=== PATIENT | female | born 1950 | race Caucasian/White ===

== ENCOUNTER 2019-02-25 10:58 | Emergency (ER) | payer MEDICARE ==
--- NOTE | 2019-02-25 11:01 | ED ---
Neurological HPI - HPI Summary HPI Summary: MARK LONGORIA called from the field by EMS at 1054, ETA 5 minutes. This pt is a 68 y/o female presenting to [facility] via EMS for aphasia and right sided weakness. EMS reports pt's last well known was last night 02/24/19 at 2000 per patient's . Per EMS, tried to wake patient up today at 0930 and pt was aphasic, with facial droop and unable to ambulate. EMS reports pt has drift in right lower and upper extremities. Finger stick at home was 155 and blood glucose in the ambulance was 208, per EMS. Patient denies any headache. Pt denies chest pain. - History of Current Complaint Stated Complaint: MARK LONGORIA Hx Obtained From: Patient, Family/Sausage [employer]er - , EMS Onset/Duration: Still Present Timing: Constant Current Severity: Moderate Neurological Deficit Location: Facial, RUE, RLE Pain Intensity: 0 Pain Scale Used: 0-10 Numeric Character: Weak, Impaired Speech Aggravating: Nothing Alleviating: Nothing Associated Signs and Symptoms: Positive: Weakness, Impaired Speech. Negative: Headache, Pain, Fever, Chest Pain - Allergy/Home Medications Allergies/Adverse Reactions: Allergies Allergy/AdvReac Type Severity Reaction Status Date / Time latex Allergy Rash Verified 02/25/19 11:35 Home Medications: Home Medications Ascorbic Acid TAB* [Vitamin C TAB*] 500 mg PO DAILY 02/25/19 [History Confirmed 02/25/19] Cholecalciferol CAP/TAB(NF) [Vitamin D3 CAP/TAB (NF)] 2,000 unit PO DAILY [History Confirmed 02/25/19] Lisinopril TAB* [Prinivil TAB*] 20 mg PO DAILY 02/25/19 [History Confirmed 02/25] glipiZIDE TAB* [Glucotrol TAB*] 10 mg PO BID 02/25/19 [History Confirmed ] PMH/Surg Hx/FS Hx/Imm Hx Endocrine/Hematology History: Reports: Hx Diabetes - type 2 Denies: Hx Thyroid Disease Cardiovascular History: Denies: Hx Hypertension Respiratory History: Denies: Hx Asthma, Hx Chronic Obstructive Pulmonary Disease (COPD) GI History: Denies: Hx Ulcer - Surgical History Surgical History: Yes Surgery Procedure, Year, and Place: hysterectomy 2002 Infectious Disease History: Denies: Hx Hepatitis, Hx Human Immunodeficiency Virus (HIV), History Other Infectious Disease - Family History Known Family History: Negative: Cardiac Disease, Hypertension, Diabetes - Social History Alcohol Use: None Substance Use Type: Reports: None Smoking Status (MU): Never Smoked Tobacco Review of Systems Negative: Fever Negative: Chest Pain Neurological: Other - POSITIVE: aphasia, unable to ambulate, facial droop Negative: Headache All Other Systems Reviewed And Are Negative: Yes Physical Exam - Summary Physical Exam Summary: Appearance: The patient is well-nourished in no acute distress and in no acute pain. Skin: The skin is warm and dry and skin color reflects adequate perfusion. HEENT: The head is normocephalic and atraumatic. The pupils are equal and reactive. The conjunctivae are clear and without drainage. Nares are patent and without drainage. Mouth reveals moist mucous membranes and the throat is without erythema and exudate. The external ears are intact. The ear canals are patent and without drainage. The tympanic membranes are intact. Neck: the neck is supple with full range of motion and non-tender. There are no carotid bruits. There is no neck vein distension. Respiratory: Chest is non-tender. Lungs are clear to auscultation and breath sounds are symmetrical and equal. Cardiovascular: Heart is regular rate and rhythm. There is no murmur or rub auscultated. There is no peripheral edema and pulses are symmetrical and equal. Abdomen: The abdomen is soft and non-tender. There are normal bowel sounds heard in all four quadrants and there is no organomegaly palpated. Musculoskeletal: There is no back tenderness noted. Extremities are non-tender with full range of motion. There is good capillary refill. There is no peripheral edema or calf tenderness elicited. Neurological: Patient is alert. Pt is aphasic. She has drift in her right upper and right lower extremities. NIH stroke scale is 10. Psychiatric: The patient has an appropriate affect and does not exhibit any anxiety or depression. Triage Information Reviewed: Yes Vital Signs On Initial Exam: Initial Vitals Temp Pulse Resp BP Pulse Ox 97.0 F 117 19 127/84 99 02/25/19 11:00 02/25/19 11:00 02/25/19 11:00 02/25/19 11:00 02/25/19 11:00 Vital Signs Reviewed: Yes - [place] Coma Scale Best Eye Response: 4 - Spontaneous Best Motor Response: 6 - Obeys Commands Best Verbal Response: 5 - Oriented Coma Scale Total: 15 Procedures - Sedation Patient Received Moderate/Deep Sedation with Procedure: No Diagnostics - Laboratory Result Diagrams: 02/25/19 11:34 Lab Statement: Any lab studies that have been ordered have been reviewed, and results considered in the medical decision making process. - CT Brain CT CT Interpretation Completed By: Radiologist Summary of CT Findings: IMPRESSION: Hypoattenuation of the left frontal subcortical white matter. Given clinical symptoms differential includes subacute infarct versus chronic small vessel ischemic change. Preliminary findings were discussed with Dr. Kothari in the Emergency Department at approximately 11:17 AM on February 25, 2019. Head/Neck CTA CT Interpretation Completed By: Radiologist Summary of CT Findings: IMPRESSION: 1. 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 2. Aspects score of 8 out of 10. 3. Atherosclerosis without internal carotid artery stenosis by nascet criteria. Preliminary findings were discussed with Dr. Dior at approximately 11:31 AM on February 25, 2019. Dr. Kothari has reviewed this report. - EKG 1124 Cardiac Rate: Tachycardia - at 118 bpm EKG Rhythm: Atrial Fibrillation Summary of EKG Findings: EKG at 1124 shows afib at a rate of [address] depression consistent with ischemia. NIH Scale - NIH Scale Level of Consciousness: Alert/Keenly Responsive Ask Patient the Month and His/Her Age: Neither Correct/Aphasic Ask Pt to Open/Close Eyes and Palliative Medicine Physician/Release Non-Paretic Hand: Both Correctly Best Gaze (Only Horizontal Eye Movement): Normal Visual Field Testing: No Visual Loss Facial Paresis-Pt to Smile & Close Eyes or Grimace Symmetry: Partial Paralysis Motor Function - Right Arm: Drifts LT 10 seconds Motor Function - Left Arm: No Drift-Holds 10 Seconds Motor Function - Right Leg: Drifts LT 10 seconds Motor Function - Left Leg: No Drift-Holds 10 Seconds Limb Ataxia-Must be out of Proportion to Weakness Present: Absent Sensory (Use Pinprick to Test Arms/Legs/Trunk/Face): Normal Best Language (Describe Picture, Name Items): Severe Aphasia Dysarthria (Read Several Words): Slurs Some Words Extinction and Inattention: Inattention Total Score: 10 Re-Evaluation - Re-Evaluation First Eval Re-Evaluation Time: 11:30 Comment: Patient denies any chest pain Course/Dx - Course Course Of Treatment: Mark Longoria called from the field by EMS at 1054, ETA 5 minutes. Patient arrives via EMS at [address] Kothari immediately at bedside. NIH stroke scale is 10. Pt to CT at 1102. Pt back from CT at 1118. Dr. Henderson, radiologist, reports brain CT results at 1117. Dr. Dior was present department prior to us getting reported CT results. As soon as the patient came back from CT scan he was able to evaluate her. CT revealed a large vessel occlusion and the helicopter was contacted. The helicopter is not flying today secondary to whether therefore arrangements were made to transfer the patient to [facility] by ground. Her EKG returned with diffuse ST depressions. We have no old EKG to compare to. The patient very clearly denies any chest pain and her comprehension seems competent to me. - Diagnoses Provider Diagnoses: CVA (cerebral vascular accident) During the Visit The Following Alert/Code Occurred: Mark Longoria - called from the field by EMS at 1054, ETA 5 minuts - Physician Notifications Discussed Care Of Patient With: Zurdo Henderson Time Discussed With Above Provider: 11:17 Instructed by Provider To: Other - Dr. Henderson, radiologist, reports brain CT results. - Critical Care Time Critical Care Time: 30-74 min Discharge ED - Sign-Out/Discharge Documenting (check all that apply): Patient Departure - Transfer to [facility] - Discharge Plan Condition: Stable Disposition: TRANS HIGHER LVL OF CARE FAC Referrals: Sam Rhodes MD [Primary Care Provider] - - Billing Disposition and Condition Condition: STABLE Disposition: Trans Higher Lvl of Care Fac - Attestation Statements Document Initiated by Ericaibe: Yes Documenting Scribe: Jada Campoverde Provider For Whom Sabrina is Documenting (Include Credential): Osmin Kothari MD Scribe Attestation: Jada Santana, scribed for Osmin Kothari MD on 02/25/19 at 1146. Scribe Documentation Reviewed: Yes Provider Attestation: The documentation as recorded by the Jada la accurately reflects the service I personally performed and the decisions made by me, Osmin Kothari MD Status of Scribe Document: Viewed
[2019-02-25] MEDS ORDERED: NS 0.9% 1000 ML** 1,000 ML IV ONE (11:06)
[2019-02-25 11:45] LABS: ABS Monocytes 0.3 10^3/ul (0-0.8); ABS Neutrophils 4.8 10^3/ul (1.5-7.7); Eosinophil % 0.5 %; Hematocrit 40 % (35-47); Hemoglobin 13.1 g/dL (12.0-16.0); Lymphocyte % 16.5 %; Mean Corpuscular HGB Conc 33 g/dL (31-36); Mean Corpuscular Hemoglobin 31 pg (27-31); Mean Corpuscular Volume 95 fL (80-97); Nucleated Red Blood Cells % 0.1; Platelet Count 163 10^3/uL (150-450); Red Blood Count 4.17 10^6 /uL (3.70-4.87); Red Cell Distribution Width 16 % (10-15); White Blood Count 6.2 10^3/uL (3.5-10.8)
--- OUTSIDE RECORDS SUMMARY | 2019-02-25 11:46 | XMS REPORT | Summary of Care ---
:1950 Author Organization [facility] Address [address] [facility] [address] [place] [address] Care Team Providers Name Role Phone Sam Rhodes Primary Care Provider Gordo Grande Unavailable Reason for Referral Diagnostic Testing (Routine) Status Reason Specialty Diagnoses / Referred By Referred To Procedures Contact Contact Pending Review Diagnoses Coronary artery disease involving [place] coronary artery of [place] heart without angina pectoris Christiane, Procedures ECHOCARDIOGRAM TTE MD Gordo [address] [place] [address] Reason for Visit Reason Comments Follow Up Pt. in a 1 year Follow up on CAD. Pt. Denies Cardiac Symptoms. Encounter Details Date Type Department Care Team Description 12/31/2018 Office Visit Wagner Dayanara Grande, Need for influenza vaccination (Primary Dx); Cardiology MD Gordo Coronary artery disease involving [place] coronary artery of [place] heart without angina pectoris; [facility] [address] Essential hypertension; [place] [address] Dyslipidemia [phone] Allergies Active Allergy Reactions Severity Noted Date Comments Latex 06/14/2007 documented as of this encounter (statuses as of 12/31/2018) Medications Medication Sig Dispensed Refills Start End Date Status Date ibuprofen (MOTRIN) Take 1 Tab by 90 5 Active 600 MG Oral Tab mouth EVERY 9 EIGHT HOURS NEEDED for Pain. Aspirin 81 MG Oral Take 162 mg by 0 Active Tab mouth DAILY. ondansetron Take 4 mg by 18 Tab 0 Active (ZOFRAN) 4 MG Oral mouth EVERY 7 TabIndications: EIGHT HOURS Nausea NEEDED for nausea. Cholecalciferol (KP Take 1 Cap by 30 Cap 0 Active VITAMIN D) 1000 mouth DAILY. 7 units Oral Cap Ascorbic Acid Take by mouth. 0 Active (VITAMIN C PO) metFORMIN HCL 1000 TAKE 1 TABLET BY 180 Tab 3 Active MG Oral Tab MOUTH TWICE 9 DAILY atorvastatin TAKE 1 TABLET BY 90 Tab 3 Active (LIPITOR) 40 MG MOUTH ONCE DAILY 9 Oral Tab metoprolol Take 1 Tab by 180 Tab 5 Active (LOPRESSOR) 25 MG mouth TWICE 9 Oral Tab DAILY. Glucose Blood (ONE 1 Each by Does 100 Each 5 Active TOUCH TEST STRIPS) not apply route 9 In Vitro DAILY. DX E11.9. StripIndications: Test daily. Diabetes mellitus Insurance without preferred complication (HCC) lisinopril Take 1 Tab by 90 Tab 5 09/11/19 Active (PRINIVIL, ZESTRIL) mouth DAILY. 9 20 20 MG Oral Tab Blood Glucose 1 Device by Does 1 Device 0 Active Monitor Software not apply route 9 Does not apply DIRECTED. DeviceIndications: uncontrolled Diabetes mellitus non-insulin without dependent complication (HCC) diabetes. Brand: Insurance preferred Test daily pioglitazone TAKE 1 TABLET BY 90 Tab 3 Active (ACTOS) 30 MG Oral MOUTH ONCE DAILY 9 Tab glipiZIDE TAKE 1 TABLET BY 180 Tab 3 Active (GLUCOTROL) 10 MG MOUTH TWICE 9 Oral Tab DAILY ezetimibe (ZETIA) Take 1 Tab by 90 Tab 3 Active 10 MG Oral mouth DAILY. 9 TabIndications: Coronary artery disease involving [place] coronary artery of [place] heart without angina pectoris ezetimibe (ZETIA) Take 1 Tab by 90 Tab 3 01/01/20 Discontinued 10 MG Oral Tab mouth DAILY. 6 19 (Reorder) documented as of this encounter (statuses as of 12/31/2018) Active Problems Problem Noted Date BMI 45.0-49.9, adult 04/09/2018 Uncontrolled type 2 diabetes mellitus without complication, without 05/12/2017 long-term current use of insulin Coronary artery disease involving [place] coronary artery of [place] heart 02/25 without angina pectoris Overview: Nonobstructive by cath 01/2014. Atypical angina 02/25/2014 Essential hypertension, benign 10/26/2007 Obesity 06/14/2007 Overview: This patient's BMI has been calculated and is above average, and BMI management plan is completed. 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 documented as of this encounter (statuses as of 12/31/2018) Resolved Problems Problem Noted Date Resolved Date AODM 06/14/2007 05/12/2017 documented as of this encounter (statuses as of 12/31/2018) Immunizations Name Administration Dates Next Due Influenza (IM) Preservative Free 12/06/2011 Influenza Vaccine 65 Yrs + 12/31/2018 Influenza Vaccine High Dose 03/01/2018, 01/03/2017, 01/14/2014 PNEUMOCOCCAL POLYSACCHARIDE VACCINE 02/02/2017 Pneumococcal Conjugate(13 Valent) 10/14/2014 documented as of this encounter Social History Tobacco Use Types Packs/Day Years Used Date Never Smoker Smokeless Tobacco: Never Used Alcohol Use Drinks/Week oz/Week Comments No 0 Standard drinks or equivalent 0.0 Social Isolation Answer Date Recorded In a typical week, how many times do you talk on the Three times a week 04/04 phone with family, friends, or neighbors? How often do you get together with friends or Three times a week 04/04/2018 relatives? How often do you attend episcopalian or mosque Not asked services? Do you belong to any clubs or organizations such as Not asked episcopalian groups, unions, fraternal or athletic groups, or school groups? How often do you attend meetings of the clubs or Not asked organizations you belong to? Are you now , , , , 04/04/2018 never or living with a partner? Physical Activity Answer Date Recorded On average, how many days per week do you engage in moderate to 0 days 2018 strenuous exercise (like walking fast, running, jogging, dancing, swimming, biking, or other activities that cause a light or heavy sweat)? On average, how many minutes do you engage in exercise at this 0 min 02/06/ 2019 level? Stress Answer Date Recorded Do you feel stress - tense, restless, nervous, or anxious, Not at all 2018 or unable to sleep at night because your mind is troubled all the time - these days? Financial Resource Strain Answer Date Recorded How hard is it for you to pay for the very basics like Not hard at all 2018 food, housing, medical care, and heating? Intimate Partner Violence Answer Date Recorded Within the last year, have you been afraid of your partner or No 04/04/2018 ex-partner? Within the last year, have you been humiliated or emotionally No 04/04/2018 abused in other ways by your partner or ex-partner? Within the last year, have you been kicked, hit, slapped, or No 04/04/2018 otherwise physically hurt by your partner or ex-partner? Within the last year, have you been raped or forced to have any No 04/04/2018 kind of sexual activity by your partner or ex-partner? Food Insecurity Answer Date Recorded Within the past 12 months, you worried that your food would Never true 2018 run out before you got money to buy more. Within the past 12 months, the food you bought just didn't Never true 2018 last and you didn't have money to get more. Transportation Needs Answer Date Recorded In the past 12 months, has lack of transportation kept you from No 04/04/2018 medical appointments or from getting medications? In the past 12 months, has lack of transportation kept you from No 04/04/2018 meetings, work, or getting things needed for daily living? Sex Assigned at Date Recorded Not on file Job Start Date Occupation Industry Not on file Not on file Not on file Travel History Travel Start Travel End No recent travel history available. documented as of this encounter Last Filed Vital Signs Vital Sign Reading Time Taken Comments Blood Pressure 124/62 12/31/2018 10:00 AM EST Pulse 72 12/31/2018 10:00 AM EST Temperature - - Respiratory Rate - - Oxygen Saturation - - Inhaled Oxygen Concentration - - Weight 103.4 kg (228 lb) 12/31/2018 10:00 AM EST Height 157.5 cm (5' 2") 12/31/2018 10:00 AM EST Body Mass Index 41.7 12/31/2018 10:00 AM EST documented in this encounter Patient Instructions Patient InstructionsGordo Grande MD - 12/31/2018 10:00 AM EST RESTART taking ezetimibe 10mg once daily. No other medication changes today. Continue to work on weight loss, regular exercise, and a healthy diet. Schedule an echocardiogram sometime in the next few months. Follow up with me in 1-2 years or sooner if needed. documented in this encounter Progress Notes Gordo Grande MD - 12/31/2018 10:00 AM EST [facility] Note Patient: Doreen Otto Date of : 1950 Date of Service: 12/31/2018 REFERRING PRACTITIONER: Gordo Grande PRIMARY CARE PROVIDER: Sam Rhodes Chief Complaint: Chief Complaint Patient presents with Follow Up Pt. in a 1 year Follow up on CAD. Pt. Denies Cardiac Symptoms. History of Present Illness: [facility] She [facility] a 68-y.o. female with DM, obesity, HTN, hyperlipidemia, and nonobstructive CAD by cath 2013. Ms. Otto returns to cardiology clinic today for routine f/u. Since her last visit with me in June 2017, she reports feeling generally well. She denies any CP/pressure or limiting dyspnea although sometimes the cold air makes her SOB. She has intermittent vertigo but denies lightheadedness, syncope, or palpitations. No orthopnea, paroxysmal dyspnea, or significant lower extremity edema. Patient Active Problem List Diagnosis Obesity Pure hypercholesterolemia DJD-LS SPINE Essential hypertension, benign Coronary artery disease involving [place] coronary artery of [place] heart without angina pectoris Atypical angina (HCC) Uncontrolled type 2 diabetes mellitus without complication, without long- term current use of insulin (HCC) BMI 45.0-49.9, adult (HCC) Past Medical History: Diagnosis Date AODM 06/14/2007 DJD-LS SPINE 06/14/2007 Hyperlipidemia 06/14/2007 Nulliparity Obesity 06/14/2007 Postmenopausal Past Surgical History: Procedure Laterality Date CATHETERIZATION HEART LEFT N/A 02/25/2014 Procedure: CATHETERIZATION HEART LEFT; Surgeon: Miguel Ángel Ly MD; Location: [facility]; Laterality:N/A; LEFT HEART VIA RIGHT RADIAL, HEMOBAND ON TOTAL ABD HYSTERECTOMY 2000 Allergies Allergen Reactions Latex Current Outpatient Medications Medication Ascorbic Acid (VITAMIN C PO) Aspirin 81 MG Oral Tab atorvastatin (LIPITOR) 40 MG Oral Tab Blood Glucose Monitor Software Does not apply Device Cholecalciferol (KP VITAMIN D) 1000 units Oral Cap ezetimibe (ZETIA) 10 MG Oral Tab glipiZIDE (GLUCOTROL) 10 MG Oral Tab Glucose Blood (ONE TOUCH TEST STRIPS) In Vitro Strip ibuprofen (MOTRIN) 600 MG Oral Tab lisinopril (PRINIVIL, ZESTRIL) 20 MG Oral Tab metFORMIN HCL 1000 MG Oral Tab metoprolol (LOPRESSOR) 25 MG Oral Tab ondansetron (ZOFRAN) 4 MG Oral Tab pioglitazone (ACTOS) 30 MG Oral Tab Family History Problem Relation Age of Onset Diabetes Father Heart Disease Father Hypertension Father Heart Disease Mother Possibly A fib Other Diagnosed Disorder Brother 3rd and 4th degree soni on 85% of body Diabetes Brother Diabetes Brother Social History Socioeconomic History Marital status: Spouse name: Not on file Number of children: 0 Years of education: Not on file Highest education level: Not on file Occupational History Not on file Social Needs Financial resource strain: Not hard at all Food insecurity: Worry: Never true Inability: Never true Transportation needs: Medical: No Non-medical: No Tobacco Use Smoking status: Never Smoker Smokeless tobacco: Never Used Substance and Sexual Activity Alcohol use: No Alcohol/week: 0.0 standard drinks Drug use: No Sexual activity: Yes Partners: Male control/protection: Surgical Lifestyle Physical activity: Days per week: 0 days Minutes per session: 0 min Stress: Not at all Relationships Social connections: Talks on phone: Three times a week Gets together: Three times a week Attends mosque service: Not on file Active member of club or organization: Not on file Attends meetings of clubs or organizations: Not on file Relationship status: Intimate partner violence: Fear of current or ex partner: No Emotionally abused: No Physically abused: No Forced sexual activity: No Other Topics Concern Back Care Not Asked Bike Helmet Not Asked Blood Transfusions Not Asked Caffeine Concern Not Asked Exercise Yes Comment: walks daily Hobby Hazards Not Asked International Travel Not Asked Service Not Asked Occupational Exposure Not Asked Seat Belt Not Asked Self-Exams Not Asked Sleep Concern Not Asked Special Diet Yes Comment: low carbo diet Stress Concern Not Asked Weight Concern Yes Comment: has lost 15 lbs last year 2010- Social History Narrative Lives in [facility] area 2 adopted children Review of Systems - Negative except as noted in HPI. Physical Exam: Vitals: 12/31/18 1000 BP: 124/62 Pulse: 72 Weight: 228 lb (103.4 kg) Height: 5' 2" (1.575 m) Body mass index is 41.7 kg/m. General: Obese, alert 68-y.o. female in NAD HEENT: anicteric, MMM, no E/E OP, conj pink Neck: JVP not visible above clavicles while upright; no carotid bruits or LAD CV: RRR, normal s1/s2, soft EMERSON at USB. Pulm: CTA bilaterally without wheezes, rhonchi, or rales. No increased work of breathing. Abd: soft, obese, NT, ND, +BS. No appreciable pulsatile masses or bruits. Ext: Trace bilateral lower extremity edema, no cyanosis, no cords, redness, or warmth, 2+ distal pulses. Neuro: no gross focal deficits Skin: no visible lesions Labs: Lab Results Component Value Date NA 139 09/11/2018 K 4.2 09/11/2018 CL 103 09/11/2018 CO2 25 09/11/2018 GLUCOSE 204 (H) 09/11/2018 BUN 16 09/11/2018 CREATININE 0.7 09/11/2018 CALCIUM 9.2 09/11/2018 TP 6.9 09/11/2018 ALBUMIN 3.9 09/11/2018 AST 20 09/11/2018 ALT 23 09/11/2018 ALK 73 09/11/2018 TBILI 0.9 09/11/2018 No results found for: BNP Lab Results Component Value Date CHOL 156 09/11/2018 TRIG 130 09/11/2018 HDL 32 (L) 09/11/2018 LDL 98 09/11/2018 LDLHDLRATIO 3.1 09/11/2018 CHOLHDLRATIO 4.9 09/11/2018 Cardiac Studies: EKG Today (I personally reviewed): NSR in 70s. Normal EKG. No sig change from prior. Left Heart Cath 02/25/14: LEFT HEART CATHETERIZATION: Left ventricular end-diastolic pressure is normal at 15 mmHg. There is no significant gradient across the aortic valve. CONCLUSION: Nonobstructive coronary artery disease with tapered down left anterior descending artery. Exercise Stress Echo 01/27/14: FINAL IMPRESSION: Exercise tolerance of patient is poor. Resting hypertension with appropriate heart rate and blood pressure response to exercise. Concentric LVH with mild left atrial enlargement. Normal resting LV systolic function without resting regional wall motion abnormalities. Mild stress induced LAD distribution wall motion abnormalities. This test is equivocal for ischemia by symptoms, positive for ischemia by EKG, and positive for ischemia by echocardiographic imaging, as described. Recommendation Patient was informed that her test results were not normal and an appointment for cardiology consultation was arranged for 01/29/14. Patient was instructed to call 911 if she developed worsening or resting symptoms in the interim, and she expressed understanding and agreement with the plan. Assessment & Plan: Doreen Otto is a 68-y.o. female with DM, obesity, HTN, hyperlipidemia, and nonobstructive CAD by cath 2013. ICD-9-CM ICD-10-CM 1. Need for influenza vaccination V04.81 Z23 2. Coronary artery disease involving [place] coronary artery of [place] heart without angina pectoris 414.01 I25.10 AMBULATORY 12 LEAD EKG (GLOBAL) ECHOCARDIOGRAM TTE ezetimibe (ZETIA) 10 MG Oral Tab 3. Essential hypertension 401.9 I10 4. Dyslipidemia 272.4 E78.5 1. Nonobstructive Coronary Artery Disease: Currently asymptomatic from an ischemic standpoint. I recommend the following medical regimen: Antiplatelets: Continue aspirin 81 mg daily for life. Statin: Wasn't able to tolerate highest dose atorvastatin due to myalgias and couldn't afford Crestor. Will cont 40mg atorvastatin. Was doing fine with Zetia as well, but has been off that for awhile for some reason. Since her LDL has increased to 98 off the Zetia, I recommended restarting itand sent a new prescription for her. Beta-adelina: Cont metoprolol. ELIAS-inhibitor: BP well controlled. Cont lisinopril.. I again encouraged increased exercise and working on weight loss with portion control. Will plan to recheck a resting echo to ensure no change in LV function since it's been many years since her last. Thank you for allowing me to participate in the care of Doreen Otto. We will plan on f/u in our office in 1-2 years or sooner prn. If you have any questions or concerns please feel free to call our office at . Gordo Grande MD, 12/31/2018, 10:27 This note was created using my previous note as a template; changes were made where appropriate, andall information in the current note is up to date to the best of my knowledge.Electronically signed by Gordo Grande MD at 2018 11:13 AM ESTdocumented in this encounter Plan of Treatment Date Type Specialty Care Team Description 12/31/2018 Lab Internal Medicine Diabetes mellitus without complication (HCC) 03/05/2019 Orders Only Cardiology 04/03/2019 Ancillary Procedure Radiology 01/01/2020 Office Visit Cardiology Gordo Grande MD [address] [place] [address] [phone] Name Type Priority Associated Diagnoses Order Schedule AMBULATORY 12 LEAD EKG EKG Routine Coronary artery Ordered: 12/31/2018 (GLOBAL) disease involving [place] coronary artery of [place] heart without angina pectoris ECHOCARDIOGRAM TTE CV Lab Routine Coronary artery Expected: 12/31/2018 disease involving (Approximate), [place] coronary artery Expires: 02/04/2020 of [place] heart without angina pectoris Health Maintenance Due Date Last Done Comments ZOSTER IMMUNIZATION SERIES 1998 (1 of 2) Diabetic Eye Exam 12/14/2017 12/14/2016, 05/12/2015 FOOT EXAM 01/05/2018 01/05/2017, 01/05/2017, 01/05/2017, Additional history exists INFLUENZA VACCINE (#1) 2018 03/01/2018, 01/03/2017, 01/14/2014, Additional history exists HEMOGLOBIN A1C 12/12/2018 09/11/2018, 03/01/2018, 09/12/2017, Additional history exists DEPRESSION SCREENING 04/04/2019 04/04/2018 FALL RISK ASSESSMENT 04/04/2019 04/04/2018, 04/04/2018 MEDICARE ANNUAL WELLNESS 04/04/2019 04/04/2018 VISIT MAMMOGRAM (SCREENING) 04/12/2019 04/12/2018, 02/02/2017, 11/25/2015, Additional history exists LIPID DISORDER SCREENING 09/12/2019 09/11/2018, 08/14/2018, 03/01/2018, Additional history exists OSTEOPOROSIS SCREENING 04/04/2028 04/04/2018 PNEUMOCOCCAL 65+YRS Completed 02/02/2017, 10/14/2014 HPV IMMUNIZATION SERIES Aged Out No longer eligible based on patient's age to complete this topic MENINGOCOCCAL VACCINE IMM Aged Out No longer eligible based on patient's age to complete this topic documented as of this encounter Goals Goal Patient Goal Associated Recent Patient-Stated? Author Type Problems Progress Blood Pressure Blood Pressure Essential 124/62 No [place], < 140/90 hypertension, (12/31/2018 Sam Jean Pierre, benign 10:00 AM EST) Note: Hypertension Care Plan Based on the patient's clinical history and according to JNC 8 guidelines target blood pressure goal is less than 140/90. Based on the patient's last blood pressure of BP: 120/80 mmHg the patient is at at goal. As your provider, it is important that I advise you regarding: your current medications and help you with any challenges you may face taking your medications as directed (ex. instructions, cost, side effects, and interactions). Important lifestyle changes: exercise, weight reduction, diet and dietary sodium reduction your clinical goals and how you can achieve success: weight reduction, exercise plan and diet improvements medication management: N/A diet only patient education/self-management tools provided: Current self-management tools adequate To successfully manage my Hypertension I will: monitor my blood pressure daily, understanding that my goal is less than 140/ 90 per my healthcare provider's recommendation. I will schedule an appointment with my provider if consistent abnormal readings greater than 160/100. take medications every day as prescribed by my healthcare provider and if unable to take them I will discuss with my provider. monitor for symptoms of chest pain, chest tightness/pressure, irregular heartbeat, persistent dizziness, radiating arm pain, and neck or jaw pain. If any of these symptoms are noticed I will seek medical attention immediately by calling 911 exercise/walk 45 minutes 7 day(s) per week. If I experience chest pain, chest tightness, or shortness of breath, I will seek medical attention immediately. follow a diet rich in fruits, vegetables, and low-fat dairy products with reduced content of saturated & total fat. I will reduce my sodium intake daily. An example is the DASH diet. To obtain more information please refer to the DASH Eating Plan listed in Educational Resources. record my blood pressure results. Cezar is safe and secure way for you to do this in your medical record online. try to obtain an ideal body weight. My recent weight was Weight: 207 lb ( 93.895 kg). My weight loss goal for my next office visit is 190 pounds . limit alcohol consumption. For men two drinks per day and women one drink per day. if currently smoking, will discuss how to quit smoking with my healthcare provider and work towards quitting. Educational Resources: National Heart, Lung, & Blood [place] http://nhlbi.nih.gov/hbp/index.html The DASH Diet Eating Plan http://www.nhlbi.nih.gov/health/health-topics/ topics/dash/ Academy of Nutrition & DIetetics http://eatright.org National Smoking Cessation Site http://smokefree.gov Blood Pressure < Blood Pressure 124/62 (12/31/2018 No Heather Dobson FNP 140/90 10:00 AM EST) Note: This is an individualized treatment (blood pressure) goal for Doreen Otto: Displayed above (on the left) is your goal for blood pressure control. Your most recent blood pressure is also shown above, on the right. You should try to achieve blood pressures that are lower than your goal listed above (on the left). Glycohemoglobin A1c < 7.0 Diabetes 10.4 (09/11/2018 9:00 No Heather Dobson FNP AM EDT) Note: This is an individualized treatment (diabetes control, HgbA1C) goal for Doreen Otto: Displayed above is your progress towards your HgbA1C goal. Your goal is shown above (on the left); your most recent HgbA1C is shown on the right. Note that lower numbers are better. Weight loss vs. 18 mo Lifestyle 8.1 (12/31/2018 10:00 AM No Heather Dobson FNP max (lbs) >= 10 EST) Note: This is an individualized lifestyle goal for Doreen Otto: Your body mass index (BMI) is more than 30. You should lose weight. A reasonable starting goal is to lose 10 pounds. Displayed above is how many pounds you have lost thus far towards your 10 pound weight loss goal. Keep immunizations current Lifestyle No Heather Dobson FNP Note: This is an individualized lifestyle goal for Doreen Otto: Please be sure to keep up-to-date on recommended immunizations. For example, this would include a yearly influenza vaccine. Immunization status can be seen by looking at the Health Maintenance sections of your e[facility], Plan of Care, and any After Visit Summaries. Take all prescribed medications as Self-management No Heather Dobson FNP directed Note: This is an individualized self-management goal for Doreen Otto: Please take all prescribed medications as directed. 1. Do not skip doses. If you cannot afford your medications, talk with your doctor. 2. Use a pill reminder system such as a pill box if needed. Your pharmacist can help you with this. 3. Contact your Pharmacy 5 days before your medication runs out. If you cannot take your medications for any reasons, talk with your doctor. 4. Please bring all of your medication bottles and inhalers (or a list of all your medications/inhalers) with you to every visit. Potential barriers to meeting all of your care plan goals will continue to be addressed on an ongoing basis. documented as of this encounter Results Not on filedocumented in this encounter Visit Diagnoses Diagnosis Need for influenza vaccination - Primary Need for prophylactic vaccination and inoculation against influenza Coronary artery disease involving [place] coronary artery of [place] heart without angina pectoris Essential hypertension Unspecified essential hypertension Dyslipidemia Other and unspecified hyperlipidemia documented in this encounter Insurance Payer Benefit Plan / Subscriber ID Effective Dates Phone Address Type Group UHC MEDICARE [employer] xxxxxxxxx 2016-Present [facility] [employer] MEDICARE ADVANTAGE (Home) [place], [place] [phone] [id number] (Work) documented as of this encounter
--- OUTSIDE RECORDS SUMMARY | 2019-02-25 11:46 | XMS REPORT | Summary of Care ---
:1950 Author Organization [facility] Address [address] [facility] [place] [address] Care Team Providers Name Role Phone EurekaSam Primary Care Provider Gordo Grande Unavailable Reason for Visit Reason Comments Follow Up diabetic f/u Encounter Details Date Type Department Care Team Description 01/10/2019 Office Visit [facility] Heather Dobson, Diabetes mellitus without complication (HCC) (Primary Dx); Practice [facility] Essential hypertension, benign; [address] Pure hypercholesterolemia; [place] [address] [place] [address] Encounter for screening mammogram for breast cancer [phone] Allergies Active Allergy Reactions Severity Noted Date Comments Latex 06/14/2007 documented as of this encounter (statuses as of 01/10/2019) Medications Medication Sig Dispensed Refills Start Date End Date Status ibuprofen (MOTRIN) Take 1 Tab by 90 5 06/11/2008 Active 600 MG Oral Tab mouth EVERY EIGHT HOURS NEEDED for Pain. Aspirin 81 MG Oral Take 162 mg by 0 Active Tab mouth DAILY. ondansetron (ZOFRAN) Take 4 mg by mouth 18 Tab 0 03/30/2016 Active 4 MG Oral EVERY EIGHT HOURS TabIndications: NEEDED for Nausea nausea. Cholecalciferol (KP Take 1 Cap by 30 Cap 0 01/03/2017 Active VITAMIN D) 1000 units mouth DAILY. Oral Cap Ascorbic Acid Take by mouth. 0 Active (VITAMIN C PO) metFORMIN HCL 1000 MG TAKE 1 TABLET BY 180 Tab 3 06/20/2018 Active Oral Tab MOUTH TWICE DAILY atorvastatin TAKE 1 TABLET BY 90 Tab 3 08/14/2018 Active (LIPITOR) 40 MG Oral MOUTH ONCE DAILY Tab metoprolol Take 1 Tab by 180 Tab 5 08/22/2018 Active (LOPRESSOR) 25 MG mouth TWICE DAILY. Oral Tab Glucose Blood (ONE 1 Each by Does not 100 Each 5 09/11/2018 Active TOUCH TEST STRIPS) In apply route DAILY. Vitro DX E11.9. Test StripIndications: daily. Insurance Diabetes mellitus preferred without complication (HCC) lisinopril (PRINIVIL, Take 1 Tab by 90 Tab 5 09/11/2018 09/11/2019 Active ZESTRIL) 20 MG Oral mouth DAILY. Tab Blood Glucose Monitor 1 Device by Does 1 Device 0 09/11/2018 Active Software Does not not apply route apply DIRECTED. DeviceIndications: uncontrolled Diabetes mellitus non-insulin without complication dependent (HCC) diabetes. Brand: Insurance preferred Test daily pioglitazone (ACTOS) TAKE 1 TABLET BY 90 Tab 3 12/28/2018 Active 30 MG Oral Tab MOUTH ONCE DAILY glipiZIDE (GLUCOTROL) TAKE 1 TABLET BY 180 Tab 3 12/28/2018 Active 10 MG Oral Tab MOUTH TWICE DAILY ezetimibe (ZETIA) 10 Take 1 Tab by 90 Tab 3 12/31/2018 Active MG Oral mouth DAILY. TabIndications: Coronary artery disease involving [place] coronary artery of [place] heart without angina pectoris documented as of this encounter (statuses as of 01/10/2019) Active Problems Problem Noted Date BMI 45.0-49.9, adult 04/09/2018 Uncontrolled type 2 diabetes mellitus without complication, without 05/12/2017 long-term current use of insulin Coronary artery disease involving [place] coronary artery of [place] heart 02/25 without angina pectoris Overview: Nonobstructive [...] as of this encounter (statuses as of 01/10/2019) Resolved Problems Problem Noted Date Resolved Date AODM 06/14/2007 05/12/2017 documented as of this encounter (statuses as of 01/10/2019) Immunizations Name Administration Dates Next Due Influenza [...] 04/04/2018 relatives? How often do you attend caodaism or mormonism Not asked services? Do you belong to any clubs or organizations such as Not asked caodaism groups, unions, fraternal or athletic groups, or [...] engage in exercise at this 0 min 2018 level? Stress Answer Date Recorded Do you [...] Sign Reading Time Taken Comments Blood Pressure 122/60 01/10/2019 10:41 AM EST Pulse 76 01/10/2019 10:41 AM EST Temperature - - Respiratory Rate - - Oxygen Saturation 97% 01/10/2019 10:41 AM EST Inhaled Oxygen Concentration - - Weight 103.4 kg (228 lb) 01/10/2019 10:41 AM EST Height 157.5 cm (5' 2") 01/10/2019 10:41 AM EST Body Mass Index 41.7 01/10/2019 10:41 AM EST documented in this encounter Patient Instructions Patient InstructionsHeather Dobson FNP - 01/10/2019 10:40 AM ESTYou are due for eye exam Schedule fasting blood work at time of mammogram after 04/12/19 Follow up after lab work. Diabetes improved documented in this encounter Progress Notes Heather Dobson FNP - 01/10/2019 10:40 AM EST PATIENT: Doreen Otto : 1950 DATE OF SERVICE: 01/10/2019 Chief Complaint Patient presents with Follow Up diabetic f/u SUBJECTIVE: Doreen Otto is a 68-y.o. female who is here for follow up of diabetes, dyslipidemis and hypertension. She has had a lot of stress in family lately so fingersticks are all over the place from 100-200's.She is taking the diabetes meds but diet not always so good. She feels she can do better. Patient denies foot pain or swelling, foot lesions, numbness, burning, injuries or infections. She is due for eye exam. The patient is taking hypertensive medications compliantly without side effects. Denies chest pain,dyspnea, edema, or TIA's. No dizziness . She has been taking her statin cholesterol medication regularly without side effects such as myalgias or upper abdominal pain, nausea or jaundice. Patient Active Problem List Diagnosis Date Noted BMI 45.0-49.9, adult ([facility]) 04/09/2018 Uncontrolled type 2 diabetes mellitus without complication, without long- term current use of insulin ([facility]) 05/12/2017 Coronary artery disease involving [place] coronary artery of [place] heart without angina pectoris 02/25/2014 Nonobstructive by cath 01/2014. Atypical angina ([facility]) 02/25/2014 Essential hypertension, benign 10/26/2007 Obesity 06/14/2007 This patient's BMI has been calculated and is above average, and BMI management plan is completed. 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 Aspirin 81 MG Oral Tab Take 162 mg by mouth DAILY. atorvastatin (LIPITOR) 40 MG Oral Tab TAKE 1 TABLET BY MOUTH ONCE DAILY Blood Glucose Monitor Software Does not apply Device 1 Device by Does not apply route DIRECTED. uncontrolled non-insulin dependent diabetes. Brand : Insurance preferred Test daily Cholecalciferol ( VITAMIN D) 1000 units Oral Cap Take 1 Cap by mouth DAILY. ezetimibe (ZETIA) 10 MG Oral Tab Take 1 Tab by mouth DAILY. glipiZIDE (GLUCOTROL) 10 MG Oral Tab TAKE 1 TABLET BY MOUTH TWICE DAILY Glucose Blood (ONE TOUCH TEST STRIPS) In Vitro Strip 1 Each by Does not apply route DAILY. DXE11.9. Test daily. Insurance preferred ibuprofen (MOTRIN) 600 MG Oral Tab Take 1 Tab by mouth EVERY EIGHT HOURS NEEDED for Pain. lisinopril (PRINIVIL, ZESTRIL) 20 MG Oral Tab Take 1 Tab by mouth DAILY. metFORMIN HCL 1000 MG Oral Tab TAKE 1 TABLET BY MOUTH TWICE DAILY metoprolol (LOPRESSOR) 25 MG Oral Tab Take 1 Tab by mouth TWICE DAILY. ondansetron (ZOFRAN) 4 MG Oral Tab Take 4 mg by mouth EVERY EIGHT HOURS NEEDED for nausea. pioglitazone (ACTOS) 30 MG Oral Tab TAKE 1 TABLET BY MOUTH ONCE DAILY No current facility-administered medications for this visit. OBJECTIVE: BP 122/60 (BP Location: Left arm, Patient Position: Sitting) | Pulse 76 | Ht 5' 2" (1.575 m) | Wt 228 lb (103.4 kg) | SpO2 97% | BMI 41.70 kg/m She is alert and in no distress.Chest is clear, no wheezing or rales. Normal symmetric air entry throughout both lung gary. Heart RRR and no murmur. BP Readings from Last 3 Encounters: 01/10/19 122/60 12/31/18 124/62 09/11/18 138/68 Lab Results Component Value Date GLYCO 8.7 (H) 12/31/2018 GLYCO 10.4 (H) 09/11/2018 GLYCO 8.5 (H) 03/01/2018 Lab Results Component Value Date CHOL 157 12/31/2018 TRIG 187 (H) 12/31/2018 HDL 38 (L) 12/31/2018 LDL 82 12/31/2018 LDLHDLRATIO 2.1 12/31/2018 CHOLHDLRATIO 4.1 12/31/2018 Lab Results Component Value Date NA 140 12/31/2018 K 4.6 12/31/2018 CL 104 12/31/2018 CO2 22 12/31/2018 GLUCOSE 199 (H) 12/31/2018 BUN 17 12/31/2018 CREATININE 0.8 12/31/2018 CALCIUM 9.5 12/31/2018 TP 7.2 12/31/2018 ALBUMIN 4.1 12/31/2018 AST 27 12/31/2018 ALT 16 12/31/2018 ALK 57 12/31/2018 TBILI 0.9 12/31/2018 EGFR >60 12/31/2018 ASSESSMENT: ICD-9-CM ICD-10-CM 1. Diabetes mellitus without complication (HCC), improved 250.00 E11.9 GLYCOHEMOGLOBIN A1C 2. Essential hypertension, benign, well controlled 401.1 I10 COMPREHENSIVE METABOLIC PANEL 3. Pure hypercholesterolemia, on statin 272.0 E78.00 LIPID PROFILE 4. Encounter for screening mammogram for breast cancer V76.12 Z12.31 MAMMO SCREENING TOMOSYNTHESIS BILATERAL Patient Instructions You are due for eye exam Schedule fasting blood work at time of mammogram after 04/12/19 Follow up after lab work. Diabetes improved Author: MEGHANN Miller 01/10/2019 12:45 documented in this encounter Plan of Treatment Date Type Specialty Care Team Description 03/05/2019 Orders Only Cardiology 04/16/2019 Lab Internal Medicine 04/16/2019 Ancillary Procedure Radiology 04/23/2019 Office Visit Family Practice Heather Dobson FNP [address] [place] [address] 01/01/2020 Office Visit Cardiology Gordo Grande MD [address] [place] [address] Name Type Priority Associated Diagnoses Order Schedule MAMMO SCREENING Imaging Routine Encounter for screening Expected: TOMOSYNTHESIS BILATERAL mammogram for breast cancer 01/10/2019, Expires: 04/09/2020 COMPREHENSIVE METABOLIC Lab Routine Essential hypertension, Expected: PANEL benign 01/10/2019 (Approximate), Expires: 07/09/2019 LIPID PROFILE Lab Routine Pure hypercholesterolemia Expected: 01/10/2019 (Approximate), Expires: 07/09/2019 GLYCOHEMOGLOBIN A1C Lab Routine Diabetes mellitus without Expected: complication (HCC) 01/10/2019 (Approximate), Expires: 07/09/2019 Health Maintenance Due Date Last Done Comments ZOSTER IMMUNIZATION SERIES 1998 (1 of 2) Diabetic Eye Exam 12/14/2017 12/14/2016, 05/12/2015 FOOT EXAM 01/05/2018 01/05/2017, 01/05/2017, 01/05/2017, Additional history exists HEMOGLOBIN A1C 04/02/2019 12/31/2018, 09/11/2018, 03/01/2018, Additional history exists DEPRESSION SCREENING 04/04/2019 04/04/2018 FALL RISK ASSESSMENT 04/04/2019 04/04/2018, 04/04/2018 MEDICARE ANNUAL WELLNESS 04/04/2019 04/04/2018 VISIT MAMMOGRAM (SCREENING) 04/12/2019 04/12/2018, 02/02/2017, 11/25/2015, Additional history exists LIPID DISORDER SCREENING 01/01/2020 12/31/2018, 09/11/2018, 08/14/2018, Additional history exists OSTEOPOROSIS SCREENING 04/04/2028 04/04/2018 PNEUMOCOCCAL 65+YRS Completed 02/02/2017, 10/14/2014 INFLUENZA VACCINE Completed 12/31/2018, 03/01/2018, 01/03/2017, Additional history exists HPV IMMUNIZATION SERIES Aged Out No longer eligible based on patient's age to complete this topic MENINGOCOCCAL VACCINE IMM Aged Out No longer eligible based on patient's age to complete this topic documented as of this encounter Goals Goal Patient Goal Associated Recent Patient-Stated? Author Type Problems Progress Blood Pressure Blood Pressure Essential 122/60 No [place], < 140/90 hypertension, (01/10/2019 Sam Greenfield, benign 10:41 AM EST) Note: Hypertension Care Plan Based [...] Educational Resources: National Heart, Lung, & Blood [place] http://nhlbi.nih.gov/hbp/index.html The DASH Diet Eating Plan http://www.nhlbi.nih.gov/health/health-topics/ topics/dash/ Academy of Nutrition & DIetetics http://eatright.org National Smoking Cessation Site http://smokefree.gov Blood Pressure < Blood Pressure 122/60 (01/10/2019 No Heather Dobson FNP 140/90 10:41 AM EST) Note: This is an individualized treatment (blood pressure) goal for Doreen Otto: Displayed above (on the left) is your goal for blood pressure control. Your most recent blood pressure is also shown above, on the right. You should try to achieve blood pressures that are lower than your goal listed above (on the left). Glycohemoglobin A1c < 7.0 Diabetes 8.7 (12/31/2018 11:08 No Heather Dobson FNP AM EST) Note: This is an individualized treatment (diabetes control, HgbA1C) goal for Doreen Otto: Displayed above is your progress towards your HgbA1C goal. Your goal is shown above (on the left); your most recent HgbA1C is shown on the right. Note that lower numbers are better. Weight loss vs. 18 mo Lifestyle 8.1 (01/10/2019 10:41 AM No Heather Dobson FNP max (lbs) [...] filedocumented in this encounter Visit Diagnoses Diagnosis Diabetes mellitus without complication (HCC) - Primary Type II or unspecified type diabetes mellitus without mention of complication, not stated as uncontrolled Essential hypertension, benign Pure hypercholesterolemia Encounter for screening mammogram for breast cancer documented in this encounter Insurance Payer Benefit Plan / Subscriber ID Effective Dates Phone Address Type Group UHC MEDICARE [employer] xxxxxxxxx 2016-Present [facility] ADVANT[facility] MEDICARE ADVANTAGE (Home) [place], [place] [phone] [id number] (Work) documented as of this encounter
[2019-02-25 12:00] LABS: Activated Partial Thrombo Time 40.7 seconds (26.0-38.0); INR 1.03 (0.82-1.09)
[2019-02-25 12:04] LABS: Albumin 3.8 g/dL (3.2-5.2); Albumin/Globulin Ratio 1.6 (1-3); BUN/Creatinine Ratio 22.5 (8-20); Calcium 8.8 mg/dL (8.6-10.3); EGFR African American 85.8 (>60); EGFR Non-African American 70.9 (>60); Globulin 2.4 g/dL (2-4); HDL Cholesterol 41.4 mg/dL; Total Bilirubin 0.8 mg/dL (0.2-1.0); Total Protein 6.2 g/dL (6.4-8.9)
[2019-02-25 12:23] VITALS: BP 130/80
[2019-02-25 13:24] LABS: Urine Appearance Clear; Urine Bilirubin Negative (Negative); Urine Blood 1+ (Negative); Urine Color Yellow; Urine Glucose Negative (Negative); Urine Ketones Trace (Negative); Urine Nitrite Negative (Negative); Urine Protein Negative (Negative); Urine Specific Gravity 1.019 (1.010-1.030); Urine Urobilinogen Negative (Negative)
[2019-02-25 13:34] LABS: Urine Bacteria Absent (Absent); Urine Red Blood Cell 3+(>10/hpf) (Absent); Urine Squamous Epithelial Cell Present (Absent); Urine White Blood Cell Trace(0-5/hpf) (Absent)
--- NOTE | 2019-02-25 13:50 | CONS ---
NEUROLOGY CONSULTATION: DATE OF CONSULT: 02/25/19 LOCATION: She is in the emergency room. REFERRING PROVIDER: Dr. Osmin Kothari. CHIEF COMPLAINT: Right-sided weakness, aphasia. HISTORY OF PRESENT ILLNESS: Doreen Otto is a 68-year-old woman who was last known well at 8 p.m. when she went to bed with her , Faizan. He is in the emergency room and able to provide direct confirmation. When he tried to get up out of the bed this morning, she could not stand. She was not able to communicate effectively. He called ambulance and she was brought into the emergency room. Rubina donaldson was called. It was well over the tPA window. In the emergency room, she had obvious neurological deficits and was in atrial fibrillation. There are no prior medical records and so I presume this is a new -onset atrial fibrillation. Her confirms that there is no prior history of stroke. He confirms that she was able to communicate and ambulate last night before they went to bed without deficits. There is no prior history of strokes, seizures, or head trauma. There are no recent bleeding events or trauma. She is not on any anticoagulants or aspirin. PAST MEDICAL HISTORY: Notable for diabetes and hypertension. There are no other medical records in our computer system. MEDICATIONS AT HOME: 1. Glipizide. 2. Metformin. 3. Metoprolol. 4. Actos. 5. Atorvastatin. 6. Lisinopril. ALLERGIES: She apparently does not have any drug allergies. REVIEW OF SYSTEMS: From the patient is negative for chest pain or headache. She did not notice any problems with her vision. There are no recent falls. PHYSICAL EXAM: In the emergency room, her blood pressure was 140/82, heart rate in the 70s and in atrial fibrillation on the monitor. Heart tones are distant. I do not hear any murmurs. There is no head trauma. Neck was supple. Neurological Exam: Pupils reacted equally from about 3 down to 2 mm. She had a left gaze preference, but was able to fully follow my finger into her right gaze as well. Visual gary seemed full to confrontation. She had moderate weakness of the right lower facial musculature. She responded to light touch on both sides of the face equally and felt that it was symmetric. Tongue protruded in the midline. Speech was dysarthric. She is very aphasic. She was able to produce single words. She was able to tell me the month, but was incorrect with her date and shook her head realizing that she was coming up with a wrong age. NIH Stroke Score was 13. She scored 1 for level of consciousness, 1 for level of consciousness questions, 1 for best gaze, 1 for facial palsy, 2 for right arm weakness, 1 for right leg weakness, 2 for right upper and lower limb ataxia , 1 for sensory asymmetries in the upper extremities, 2 for best language, 1 for dysarthria. DIAGNOSTIC STUDIES/LAB DATA: Laboratory data is reviewed. She had a normal CBC including platelet count. Chemistry profile was normal other than glucose was 155. CT scan of the brain was reviewed and discussed with Dr. Henderson. She has early changes of hypodensity in the left frontal lobe consistent with an early infarction. There is no hemorrhage. CT angiogram of the brain was likewise reviewed. 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 All images were reviewed personally. 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 I have discussed with the patient and her that she is having symptoms and signs of a stroke. I told them that her imaging shows an occluded artery on the left side of her brain, which could potentially be opened up with endovascular therapy. They consented to transfer for potential endovascular intervention. I called [facility] and after some difficulties with communications , they advised me that they do not have a bed and could not accept her in transfer. We attempted to reach [facility] in [place], but I did not receive a call back from their on-call neurologist. I contacted the [facility] and I spoke with Dr. Toni Syed, who reviewed the images and agreed that the patient was appropriate candidate for transfer. There is currently no flying in the [place] area because of weather. Ambulance is currently here and the patient is being prepared for transfer to [facility] for further evaluation for consideration of possible endovascular therapy. This has been discussed with the patient briefly and with her , Faizan. I have also discussed the case several times while here in the emergency room with Dr. Osmin Kothari. TIME SPENT: Seventy-five minutes was spent directly in the emergency room with the patient's care including interaction with other providers involved. [id number]/[facility] #: [id number] MELE
== END 2019-02-25 12:31 | disposition short-term general hospital (02) ==
LOC: ED 10:58
DX: I63.9 Cerebral infarction, unspecified (principal); E11.9 Type 2 diabetes mellitus without complications; I10 Essential (primary) hypertension; Z90.710 Acquired absence of both cervix and uterus; Z79.84 Long term (current) use of oral hypoglycemic drugs; Z79.899 Other long term (current) drug therapy; Z91.040 Latex allergy status
CPT/HCPCS: 36415; 70450; 70496; 70498; 71045; 80053; 80061; 81003; 81015; 83605; 84484; 85025; 85610; 85730; 87086; 93005; 99285; Q9967